=== PATIENT | female | born 1995 | race African-American/Black ===

== ENCOUNTER 2024-08-07 12:49 | Emergency (ER) | payer MEDICAID, OTHER ==
[~2024-08-07] VITALS: Ht 170.2 cm; Wt 69.0 kg
[2024-08-07 12:57] VITALS: O2SAT 99
[2024-08-07] MEDS: KETOROLAC 30MG/ML VIAL IM STA (13:52)
[2024-08-07] MEDS: IBUPROFEN 600MG TABLET PO ONE (14:09)
[2024-08-07 14:42] LABS: BASOPHILS % 1.3 % (0.0-2.0); EOSINOPHILS % 0.6 % (0.0-5.0); HEMATOCRIT. 33.3 % (36.0-48.0); HEMOGLOBIN. 10.7 g/dL (12.0-16.0); LYMPHOCYTES % 29.6 % (20.0-50.0); MEAN CORPUSCULAR HEMOGLOBIN 26.2 pg (28.0-32.0); MEAN CORPUSCULAR HGB CONC 32.2 g/dL (31.0-37.0); MEAN CORPUSCULAR VOLUME 81.3 fL (81.0-99.0); MEAN PLATELET VOLUME 9.1 fl (7.4-10.4); MONOCYTES % 10.5 % (2.0-8.0); PLATELET 234 x1000/uL (130-400); WHITE BLOOD COUNT 6.9 x1000/uL (4.5-11.0)
[2024-08-07 14:50] LABS: CARBON DIOXIDE 26 mEq/L (21-32); CHLORIDE 106 mEq/L (98-107); POTASSIUM 3.9 mEq/L (3.5-5.1); SODIUM 139 mEq/L (136-145)
[2024-08-07 14:51] LABS: CALCIUM 9.1 mg/dL (8.7-10.4)
[2024-08-07 14:56] LABS: CREATININE 0.7 mg/dL (0.6-1.0); GLUCOSE 92 mg/dL (70-105); UREA NITROGEN BLOOD 10 mg/dL (9-23)
[2024-08-07] MEDS ORDERED: IBUP-2029 MT (15:07)
[2024-08-07 15:32] VITALS: BP 135/69; PULSE 65; RESP 18; TEMP 36.9; O2SAT 100
== END 2024-08-07 15:35 | disposition home or self-care (01) ==
LOC: ER 12:49
DX: M94.0 Chondrocostal junction syndrome [Tietze] (principal); Z79.899 Other long term (current) drug therapy
CPT/HCPCS: 36415; 71045; 80048; 83880; 85025; 85379; 99284; J1885